=== PATIENT | male | born 1970 | race Caucasian/White ===

== ENCOUNTER 2024-06-12 10:09 | Emergency (ER) | payer OTHER, SELFPAY ==
[2024-06-12 10:26] VITALS: BP 140/106
--- NOTE | 2024-06-12 10:32 | ED.GENMED ---
ED Provider Triage
<Jody Tucker PA-C - Last Filed: 06/12/24 10:35>
-
Patient seen by provider in Triage?: Seen in Triage
Attestation: A medical screening examination has been initiated by a qualified medical provider. Based on the assessment performed at this time, it has been determined that an emergent medical condition may exist and the patient has been informed
that further medical evaluation and possible additional diagnostic testing may be needed.
HPI: 53yoM here with atraumatic R calf pain radiating to foot. Sent here by urgent care to r/o DVT.
GENERAL: Alert , in no apparent distress
EYE: No visual abnormalities.
NECK: Trachea midline
ENT: No visible abnormalities.
LUNGS: No acute respiratory distress
NEUROLOGICAL: Alert and oriented
SKIN: Skin intact. No visible changes.
MUSCULOSKELETAL: Moving extremities normally
PSYCH: Normal and appropriate interaction.
This is a medical evaluation conducted in person to initiate diagnostic evaluation and provide initial therapeutics. Please see further documentation by the treating clinician.
Palpable DP pulse on exam. Venous duplex ordered.
History of Present Illness
<Jody Tucker PA-C - Last Filed: 06/12/24 10:35>
General
Chief Complaint: DVT/Possible Blood Clot
Time Seen by Provider: 06/12/24 10:53
<Aydin Lamas PA-C - Last Filed: 06/12/24 13:33>
General
Source: patient
History of Present Illness
History of Present Illness:
53-year-old male with past medical history of hypertension presenting to the emergency department from urgent care for evaluation of right lower extremity pain which she states is ongoing for a while but that over the last few days the pain was
working its way more proximal into the gastrocnemius area which is why he was sent for the ultrasound. Patient states he cannot think of anything that caused the symptoms and notes no trauma to the affected area. Denies any focal weakness or
numbness. Ambulating makes pain worse.
Past History
<Jody Tucker PA-C - Last Filed: 06/12/24 10:35>
Past History
ED Past Medical History: HTN
ED Past Surgical History: None
Social History
Tobacco: Non-smoker
Alcohol: None
Drug: None
Personal:
Living: with family
Employment: Employed
Family History
Family History: Hypertension
Review of Systems
<Aydin Lamas PA-C - Last Filed: 06/12/24 13:33>
Review of Systems
All Other Systems: ROS reviewed and negative except as documented in HPI and ROS
Phy Exam
<Aydin Lamas PA-C - Last Filed: 06/12/24 13:33>
Physical Exam
Physical Exam:
GENERAL: Alert , in no apparent distress
EYE: conjunctiva clear
Head: Normocephalic atraumatic
NECK: Supple,
ENT: mmm.
LUNGS: no acute respiratory distress
NEUROLOGICAL: Alert and oriented
SKIN: Warm and dry, skin intact.
MUSCULOSKELETAL: well perfused. Easily palpable pedal and tibial pulses. Cap refill less than 2 seconds. Sensation grossly intact to light touch. No significant edema compared to the left lower extremity. No focal areas of tenderness.
PSYCH: Normal and appropriate interaction.
Scores
<Aydin Lamas PA-C - Last Filed: 06/12/24 13:33>
Heart Failure Risk
Heart Failure Risk Score: Not Applicable
Heart Score for Chest Pain Patients
STEMI patient?: Not applicable
Withdrawal Assessment of Alcohol
Withdrawal Assessment Completed?: Not applicable
Course
<Jody Tucker PA-C - Last Filed: 06/12/24 10:35>
Orders/Labs/Results
Orders:
Orders
06/12/24 10:28
Venous Doppler Lwr Ext Rt [US Periph Venous LOWER Ext RT] Urgent
Comment:
Reason For Exam: RLE pain
Vital Signs
Initial and Last Documented VS:
Initial Vital Signs
Temp Pulse Resp BP Pulse Ox
98.9 F 106 18 140/106 94
06/12/24 10:26 06/12/24 10:26 06/12/24 10:26 06/12/24 10:26 06/12/24 10:26
Last Documented Vital Signs
Temp Pulse Resp BP Pulse Ox
98.9 F 106 18 140/106 94
06/12/24 10:26 06/12/24 10:26 06/12/24 10:26 06/12/24 10:06/12/24 10:26
<Aydin Lamas PA-C - Last Filed: 06/12/24 13:33>
Orders/Labs/Results
Orders:
Orders
06/12/24 10:28
Venous Doppler Lwr Ext Rt [US Periph Venous LOWER Ext RT] Urgent
Comment:
Reason For Exam: RLE pain
Vital Signs
Initial and Last Documented VS:
Initial Vital Signs
Temp Pulse Resp BP Pulse Ox
98.9 F 106 18 140/106 94
06/12/24 10:26 06/12/24 10:26 06/12/24 10:26 06/12/24 10:26 06/12/24 10:26
Last Documented Vital Signs
Temp Pulse Resp BP Pulse Ox
98.9 F 106 18 140/106 94
06/12/24 10:26 06/12/24 10:26 06/12/24 10:26 06/12/24 10:26 06/12/24 10:26
<Aydin Lamas PA-C - Last Filed: 06/12/24 13:33>
MDM/Problems Addressed
Differential Diagnosis Includes:
DVT, SVT, peripheral vascular disease, peripheral arterial disease, muscle strain, tendinopathy
MDM/Problems Addressed:
53-year-old male presenting the emergency department from urgent care for DVT rule out. Patient without any signs of infection or trauma. Extremity is warm well-perfused and neurovascularly intact. Ultrasound ordered from triage. Disposition
pending.
<Aydin Lamas PA-C - Last Filed: 06/12/24 13:33>
*Radiology
Radiology exam reviewed: radiology read reviewed
*Pulse Oximetry
Patient hypoxic: no
*Critical Care Note
Total Time (30-74mins, 75-104mins- exclusive of procedures): Not Applicable
<Aydin Lamas PA-C - Last Filed: 06/12/24 13:33>
Comment
Comment:
Ultrasound negative for DVT. Advised ice and elevation of extremity, NSAIDs/Tylenol as needed for pain. Patient is otherwise stable for discharge home.
ED Attending Note
<Jody Tucker PA-C - Last Filed: 06/12/24 10:35>
-
Portions of this chart may have been created with voice recognition software.� Occasional wrong word or��sound alike� substitutions may have occurred due to the inherent limitations of voice recognition software.
Discharge Plan
Departure
Patient Disposition: Home (Routine Discharge)
Date of Disposition: 06/12/24
Time of Disposition: 13:12
Patient with high blood pressure during this ER visit?: Yes
Discharge Problem:
Pain in right lower leg
Instructions: Lower Extremity Muscle Strain (DC)
Prescriptions:
No Action
guaifenesin [Mucus Relief ER] 600 MG tablet extended release 12hr
600 mg PO HSPRN PRN (Reason: cough)
spironolactone 25 MG tablet
25 mg PO HS 1 Days Qty: 30 0RF
aspirin 81 MG tablet,chewable
81 mg PO DAILY Qty: 20 1RF
rosuvastatin 20 MG tablet
20 mg PO QPM Qty: 30 1RF
valsartan [Diovan] 320 MG tablet
320 mg PO DAILY Qty: 30 1RF
labetalol 100 MG tablet
300 mg PO BID Qty: 60 1RF
hydrochlorothiazide 25 MG tablet
25 mg PO DAILY Qty: 30 1RF
Referrals:
Burt Geronimo DO [Family Provider] -
Interventions
Interventions:
*Risk Screen - Suicide Last Done: 06/12/24 10:26
*General Assessment Last Done: 06/12/24 10:26
*Neglect/Abuse Screening Last Done: 06/12/24 10:26
Discharge Date and Time
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
== END 2024-06-12 13:35 | disposition home or self-care (01) ==
LOC: EMR 10:09
PROVIDERS: EMERGENCY PHYSICIAN Emergency Medicine; FAMILY PHYSICIAN Family Medicine
DX: M79.661 Pain in right lower leg (principal); I10 Essential (primary) hypertension
CPT/HCPCS: 99284; 93971